=== PATIENT | female | born 1950 | race American Indian/Alaskan Native ===

== ENCOUNTER 2017-04-30 12:28 | Outpatient (CLI) | payer MEDICARE ==
--- NOTE | 2017-04-30 13:59 | Mammography Report ---
Screening bilateral tomomammogram and 2-D reconstruction mammogram: Comparison of the 2-D mammography is made to prior exams dating back to 2016. It is a heterogeneous pattern which is symmetrically distributed. There is no focal mass nor architectural distortion. No interval change is identified. The tomographic images no additional information. CAD used. Impression: Stable breast pattern. Recommendation: Annual mammogram followup. BI-RADS CATEGORY: 1 = Negative ACR BI-RADS MAMMOGRAPHIC CODES: 0 = Needs additional imaging evaluation; 1 = Negative; 2 = Benign; 3 = Probably benign; 4 = Suspicious; 5 = Malignant; 6 = Known biopsy-proven malignancy COMMENT: 1. Dense breast tissue, i.e., adenosis, fibrocystic changes, etc., may obscure an underlying neoplasm. 2. Approximately 10% of cancers are not detected with mammography. 3. A negative mammography report should not delay biopsy if a clinically suspicious mass is present.
== END 2017-04-30 12:29 | disposition home or self-care (01) ==
LOC: MAMMO 12:28
PROVIDERS: ATTEND Obstetrics & Gynecology Gynecology
DX: Z12.31 Encounter for screening mammogram for malignant neoplasm of breast (principal)
CPT/HCPCS: 77063; 77067

== ENCOUNTER 2018-07-03 11:15 | Outpatient (CLI) | payer MEDICARE ==
--- NOTE | 2018-07-03 12:40 | Mammography Report ---
Bilateral mammogram: Compared to 04/30/17. CAD study utilized. Findings: Predominance of adipose tissue bilaterally. No interval change. No mass. No microcalcification. Normal axilla. Impression: Benign findings. Annual followup recommended. BI-RADS CATEGORY: 2 = Benign ACR BI-RADS MAMMOGRAPHIC CODES: 0 = Needs additional imaging evaluation; 1 = Negative; 2 = Benign; 3 = Probably benign; 4 = Suspicious; 5 = Malignant; 6 = Known biopsy-proven malignancy COMMENT: 1. Dense breast tissue, i.e., adenosis, fibrocystic changes, etc., may obscure an underlying neoplasm. 2. Approximately 10% of cancers are not detected with mammography. 3. A negative mammography report should not delay biopsy if a clinically suspicious mass is present. COMMENT: Patient follow-up letters are generated in [employer].
== END 2018-07-03 11:16 | disposition home or self-care (01) ==
LOC: MAMMO 11:15
PROVIDERS: ATTEND Nurse Practitioner Women's Health
DX: Z12.31 Encounter for screening mammogram for malignant neoplasm of breast (principal)
CPT/HCPCS: 77067

== ENCOUNTER 2020-11-07 10:27 | Outpatient (CLI) | payer MEDICARE ==
--- NOTE | 2020-11-07 12:21 | Mammography Report ---
BILATERAL DIGITAL SCREENING MAMMOGRAM WITH CAD HISTORY: Screening mammogram. TECHNIQUE: Routine digital mammographic imaging performed. This examination was interpreted with andrez ware benefit of Computer-aided Detection analysis. COMPARISON: 09/22/2019, 07/03/2018, 04/30/2017. FINDINGS: Breast Density: scattered fibroglandular appearance of the breast tissue. Digital CC and MLO views demonstrate no mammographic evidence of malignancy. IMPRESSION: No mammographic evidence of malignancy. If the clinical examination remains stable, recommend bilate ral mammogram in approximately one year. BIRADS 1: Negative. FURTHER INFORMATION: According to the [employer], yearly mammograms are recommend ed starting at age 40 and continuing as long as a woman is in good health. Clinical Breast Exams shou ld be part of a periodic health exam-about every 3 years for women in their 20s and 30s and every yea r for women 40 and over. Breast self exam is an option for women starting in their 20s. Any breast ch teresa noted on a breast self exam should be reported promptly to the patient's healthcare provider. Br east MRI is recommended for women with an approximately 20-25% or greater lifetime risk of breast can cer, including women with a strong family history of breast or ovarian cancer and women who have been treated for Hodgkin's disease. A negative Mammography report should not discourage follow up or biopsy of a clinically significant f inding and/or abnormality. Dense breast tissue may obscure small neoplasms. The patient will be entered into a reminder system with a target due date for the next screening mamm ogram. Signer Name: Ilan Gonzáles MD Signed: 11/07/2020 12:16 PM Workstation Name: [id number]
--- NOTE | 2020-11-07 12:26 | Mammography Report ---
DEXA BONE DENSITY SCAN INDICATION: Osteopenia.. COMPARISON: 04/29/2016. DEFINITIONS: BMD = Bone Mineral Density T-score = BMD related to mean peak bone mass of a young child (mean expressed in standard deviation) Z-score = age matched BMD is expressed in SD World Health Organization (WHO) diagnostic criteria Normal T score > -1 SD Osteopenia T score between -1 and -2.4 SD Osteoporosis T score -2.5 SD or below. LUMBAR SPINE (L1-L4): Bone mineral density (BMD) is 0.867 g/cm2. T-score is -1.6 (standard deviations of Young Adult mean). Z-score is -0.3 (standard deviations of Age Matched mean). Prior T-score of -1.7. This represents a 0.5% BMD change versus baseline. LEFT FEMORAL NECK: Bone mineral density (BMD) is 0.827 g/cm2. T-score is -0.9 (standard deviations of Young Adult mean). Z-score is -0.2 (standard deviations of Age Matched mean). Prior T score of -1.0. This represents a 0.7% BMD change versus baseline. IMPRESSION: WHO Classification: Osteopenia. Signer Name: Ilan Gonzáles MD Signed: 11/07/2020 12:22 PM Workstation Name: [id number]
== END 2020-11-07 10:28 | disposition home or self-care (01) ==
LOC: MAMMO 10:27
PROVIDERS: ATTEND Obstetrics & Gynecology
DX: Z12.31 Encounter for screening mammogram for malignant neoplasm of breast (principal); Z13.820 Encounter for screening for osteoporosis; M85.88 Other specified disorders of bone density and structure, other site; N95.1 Menopausal and female climacteric states
CPT/HCPCS: 77067; 77080